=== PATIENT | male | born 1965 | race Two or more races ===

== ENCOUNTER 2017-07-18 15:12 | Emergency (ER) | payer MEDICAID ==
[~2017-07-18] VITALS: Ht 167.6 cm; Wt 90.7 kg
[2017-07-18 16:09] LABS: Albumin 3.9 g/dL (3.4-5.0); Calcium 7.8 mg/dL (8.5-10.1); Potassium 3.8 mmol/L (3.5-5.1)
[2017-07-18 16:13] LABS: BUN/Creatinine Ratio 13.5
[2017-07-18 16:17] LABS: Bilirubin, Total 0.5 mg/dL (0.2-1.0)
[2017-07-18 16:22] LABS: Basophils # (auto) 0 uL; Basophils % (auto) 0.1 % (0.0-2.0); CONDITION Y; Eosinophils # (auto) 0.1 uL; Eosinophils % (auto) 1.4 % (0.0-7.0); Hematocrit 48.2 % (41.0-53.0); Lymphocytes # (auto) 2.3 uL; Mean Corpuscular Hemoglobin 33.2 pg (28.0-32.0); Mean Corpuscular Hgb Conc. 35.4 g/dL (32.0-36.0); Mean Corpuscular Volume 93.9 fL (80.0-100.0); Mean Platelet Volume 8.4 fL (7.4-10.4); Monocytes # (auto) 0.4 uL; Monocytes % (auto) 6.1 % (0.0-12.0); Neutrophils # (auto) 4.1 uL; Neutrophils % (auto) 59.4 % (37.0-80.0); Platelet Count (auto) 248 10^3/uL (140-450); Red Cell Distribution Width 13.4 % (11.6-16.0); White Blood Cell 6.8 10^3/uL (4.4-10.8)
[2017-07-18 16:27] LABS: Total Protein 8.2 g/dL (6.4-8.2)
[2017-07-18] MEDS ORDERED: SODIUM CHLORIDE 0.9% 1,000 ML IV ONE (20:00)
[2017-07-18] MEDS ORDERED: LORazepam 2MG/ML-1ML VIAL IV ONE (20:00)
[2017-07-18 21:30] VITALS: BP 142/87
== END 2017-07-18 21:20 | disposition home or self-care (01) ==
LOC: ER 15:12
DX: S52.125A Nondisplaced fracture of head of left radius, initial encounter for closed fracture (principal); F10.10 Alcohol abuse, uncomplicated; W19.XXXA Unspecified fall, initial encounter; Y93.89 Activity, other specified; Y92.89 Other specified places as the place of occurrence of the external cause; Y99.8 Other external cause status
CPT/HCPCS: 29105; 36415; 70450; 72125; 73080; 80053; 80307; 85025; 96360; 99285; J7030

== ENCOUNTER 2022-01-10 14:25 | Emergency (ER) | payer SELFPAY ==
[~2022-01-10] VITALS: Ht 167.6 cm; Wt 81.6 kg
[2022-01-10] MEDS ORDERED: cloNIDine HCL 0.1 MG TAB PO ONE (14:45)
[2022-01-10 16:09] VITALS: BP 170/98
[2022-01-10] MEDS ORDERED: PRED20TA2 PO (16:14)
[2022-01-10] MEDS ORDERED: LISI20TA28 PO (16:14)
[2022-01-10] MEDS ORDERED: TRAM-297 PO (16:15)
[2022-01-10] MEDS ORDERED: KETOROLAC TROMETH 60MG/2ML VIAL IM ONE (16:15)
== END 2022-01-10 16:47 | disposition home or self-care (01) ==
LOC: ER 14:25
DX: G89.29 Other chronic pain (principal); M54.59 Other low back pain; I10 Essential (primary) hypertension; E78.5 Hyperlipidemia, unspecified; Z86.73 Personal history of transient ischemic attack (TIA), and cerebral infarction without residual deficits
CPT/HCPCS: 96372; 99283; J1885